=== PATIENT | male | born 1945 | race Caucasian/White ===

== ENCOUNTER → 2018-01-13 | Outpatient (CLI) | payer BC, MEDICARE ==
[~2018-01-13] MED LIST: ASCO500; ASPI81CH; Benazepril HCl40 MG PO; CENTRUM COMPLE1 EACH; CHOL10002; CHRO200; DILT120 PO; DILT120ERA; FISH1000; FISH1000 PO; GARLIC; GLIM2 PO; GLIM4 PO; HALO.05TC; HYDCHL50 PO; MELATONIN10 MG; METF500 PO; POTCIT10; PSYL5.85P PO; Psyllium Fibe0.52 GM; ROSU10TA; RXOXYACE PO; SCOPOLAMINE1 EACH TD; UBID100; VITS; ZOLP10 PO
== END ==
LOC: LAB EV 08:52
DX: E11.9 Type 2 diabetes mellitus without complications (principal)
CPT/HCPCS: 82043

== ENCOUNTER 2018-01-15 13:23 | Day surgery (SDC) | payer BC, MEDICARE ==
[~2018-01-15] VITALS: Ht 180.3 cm; Wt 88.9 kg
== END 2018-01-15 16:00 | disposition home or self-care (01) ==
LOC: ORSCSDS 13:23
PROVIDERS: Internal Medicine Gastroenterology
PROC: 0DBN8ZX Excision of Sigmoid Colon, Via Natural or Artificial Opening Endoscopic, Diagnostic (ICD-10-PCS; principal; 2018-01-15 14:45)
PROC: 0DBM8ZX Excision of Descending Colon, Via Natural or Artificial Opening Endoscopic, Diagnostic (ICD-10-PCS; principal; 2018-01-15 14:45)
PROC: 0DBP8ZX Excision of Rectum, Via Natural or Artificial Opening Endoscopic, Diagnostic (ICD-10-PCS; principal; 2018-01-15 14:45)
PROC: 0DBH8ZX Excision of Cecum, Via Natural or Artificial Opening Endoscopic, Diagnostic (ICD-10-PCS; principal; 2018-01-15 14:45)
DX: Z12.11 Encounter for screening for malignant neoplasm of colon (principal); D12.0 Benign neoplasm of cecum; D12.4 Benign neoplasm of descending colon; D12.5 Benign neoplasm of sigmoid colon; K62.1 Rectal polyp; K57.30 Diverticulosis of large intestine without perforation or abscess without bleeding; Z86.010 Personal history of colon polyps; Z80.0 Family history of malignant neoplasm of digestive organs; E11.9 Type 2 diabetes mellitus without complications; I10 Essential (primary) hypertension; E78.5 Hyperlipidemia, unspecified; N40.0 Benign prostatic hyperplasia without lower urinary tract symptoms; Z79.82 Long term (current) use of aspirin; Z79.84 Long term (current) use of oral hypoglycemic drugs; Z79.899 Other long term (current) drug therapy
CPT/HCPCS: 82947; 88305; J7120

== ENCOUNTER → 2019-01-20 | Outpatient (CLI) | payer BC, MEDICARE | END | disposition home or self-care (01) | LOC: LAB EV 12:48 → LAB SHORT 12:48 | DX: E11.9 Type 2 diabetes mellitus without complications (principal) | CPT/HCPCS: 82043 ==

== ENCOUNTER → 2019-03-22 | Outpatient (CLI) | payer BC, MEDICARE ==
[2019-03-22 16:00] LABS: BASOPHILS ABSOLUTE AUTO 0.01 K/mm3 (0.00-0.23); BASOPHILS PERCENT AUTO 0 % (0-2); EOSINOPHILS ABSOLUTE AUTO 0.03 K/mm3 (0.00-0.68); EOSINOPHILS PERCENT AUTO 1 % (0-6); Hematocrit 45.5 % (37.0-53.0); Hemoglobin 15.5 g/dL (13.5-17.5); IMMATURE GRAN ABSOLUTE AUTO 0.04 K/mm3 (0.00-0.10); IMMATURE GRAN PERCENT AUTO 1 % (0-1); LYMPHOCYTES PERCENT AUTO 18 % (21-46); MONOCYTES ABSOLUTE AUTO 0.95 K/mm3 (0.16-1.47); MONOCYTES PERCENT AUTO 18 % (4-13); Mean Corpuscular HGB 30.9 pg (26.0-34.0); Mean Corpuscular HGB Conc 34.1 g/dL (31.5-36.5); Mean Corpuscular Volume 91 fL (80-100); Mean Platelet Volume 10.5 fL (9.1-12.4); NEUTROPHILS ABSOLUTE AUTO 3.22 K/mm3 (1.96-9.15); NEUTROPHILS PERCENT AUTO 63 % (41-73); Platelet Count 178 K/mm3 (150-400); RDW Coefficient Variation 13.6 % (11.7-14.2); RDW Standard Deviation 45.4 fL (35.1-46.3); Red Blood Cell Count 5.02 M/mm3 (4.30-5.90); White Blood Cell Count 5.15 K/mm3 (4.00-11.30)
[2019-03-22 16:04] LABS: Calcium, Blood 8.4 mg/dL (8.5-10.1); Creatinine, Blood 2.03 mg/dL (0.60-1.20); Potassium, Blood 3.4 mmol/L (3.5-5.5)
== END | disposition home or self-care (01) ==
LOC: LAB EV 15:55 → LAB SHORT 15:55
PROVIDERS: Family Medicine
DX: K52.9 Noninfective gastroenteritis and colitis, unspecified (principal)
CPT/HCPCS: 80048; 85025

== ENCOUNTER 2020-05-02 18:47 | Emergency (ER) | payer MEDICARE ==
[~2020-05-02 18:47] MED LIST changes: -ONDA4ODT MM
[2020-05-02] MEDS ORDERED: ONDA4ODT MM (20:49)
== END 2020-05-02 19:40 | disposition left against medical advice (07) ==
LOC: ER 18:47 → CT 18:47 → ER 19:40 → EDSTATUS 19:50 → ER 20:04
DX: Z53.21 Procedure and treatment not carried out due to patient leaving prior to being seen by health care provider (principal)
CPT/HCPCS: 74176

== ENCOUNTER 2020-05-02 20:01 | Emergency (ER) | payer MEDICARE ==
[~2020-05-02] VITALS: Ht 180.3 cm; Wt 87.1 kg
[2020-05-02] MEDS ORDERED: ONDA4ODT MM (20:49)
== END 2020-05-02 21:15 | disposition home or self-care (01) ==
LOC: ER 20:01
DX: N20.0 Calculus of kidney (principal); Z91.048 Other nonmedicinal substance allergy status; Z88.7 Allergy status to serum and vaccine; Z88.8 Allergy status to other drugs, medicaments and biological substances; Z79.899 Other long term (current) drug therapy; Z79.84 Long term (current) use of oral hypoglycemic drugs; Z79.82 Long term (current) use of aspirin
CPT/HCPCS: 96361; 96374; 96375; 99283-25; A9270; A9270-GY; J1885; J2405; J7030

== ENCOUNTER → 2020-05-02 | Outpatient (CLI) | payer MEDICARE ==
[~2020-05-02] MED LIST changes: +ONDA4ODT MM
== END | disposition home or self-care (01) ==
LOC: LAB EV 18:40 → LAB SHORT 18:40
DX: R31.9 Hematuria, unspecified (principal)
CPT/HCPCS: 87086

== ENCOUNTER → 2021-02-26 | Outpatient (CLI) | payer MEDICARE ==
[~2021-02-26] MED LIST changes: +ONDA4ODT MM
[2021-02-27 10:28] LABS: Stool Occult Bld Immuno 1 Negative (NEGATIVE)
== END | disposition home or self-care (01) ==
LOC: LAB EV 14:35 → LAB SHORT 14:35
PROVIDERS: Family Medicine
DX: D64.9 Anemia, unspecified (principal)
CPT/HCPCS: G0328

== ENCOUNTER → 2021-08-27 | Outpatient (CLI) | payer MEDICARE | END | disposition home or self-care (01) | LOC: LAB 16:06 → LAB SHORT 16:06 | DX: N39.0 Urinary tract infection, site not specified (principal) | CPT/HCPCS: 87077; 87086; 87186 ==

== ENCOUNTER 2022-01-22 08:28 | Day surgery (SDC) | payer MEDICARE ==
[~2022-01-22] VITALS: Ht 180.3 cm; Wt 75.5 kg
--- NOTE | 2022-01-22 11:06 | NUR ---
01/22/22 1106 Emily Carlisle (Melanie DOCUMENTATION COMPLETED BY [facility].[place], MEDICATION ADMINISTERED BY [email or web address].
== END 2022-01-22 11:27 | disposition home or self-care (01) ==
LOC: ORSCSDS 08:28
PROVIDERS: Internal Medicine Gastroenterology
PROC: 0DBH8ZX Excision of Cecum, Via Natural or Artificial Opening Endoscopic, Diagnostic (ICD-10-PCS; principal; 2022-01-22 09:45)
PROC: 0DBM8ZX Excision of Descending Colon, Via Natural or Artificial Opening Endoscopic, Diagnostic (ICD-10-PCS; principal; 2022-01-22 09:45)
DX: Z12.11 Encounter for screening for malignant neoplasm of colon (principal); Z86.010 Personal history of colon polyps; D12.0 Benign neoplasm of cecum; D12.4 Benign neoplasm of descending colon; Z80.0 Family history of malignant neoplasm of digestive organs; K57.30 Diverticulosis of large intestine without perforation or abscess without bleeding; K21.9 Gastro-esophageal reflux disease without esophagitis; Z79.899 Other long term (current) drug therapy
CPT/HCPCS: 82947; 88305; J2704; J7120

== ENCOUNTER 2022-08-11 13:53 | Day surgery (SDC) | payer MEDICARE ==
[~2022-08-11] VITALS: Ht 180.3 cm; Wt 78.5 kg
[2022-08-11] MEDS ORDERED: GLUCHON (14:16)
[2022-08-11] MEDS ORDERED: ERGO400 (14:16)
[2022-08-11] MEDS ORDERED: OMEP20ER (14:16)
== END 2022-08-11 15:35 | disposition home or self-care (01) ==
LOC: ORSCSDS 13:53
PROVIDERS: Internal Medicine Gastroenterology
PROC: 0DJ08ZZ Inspection of Upper Intestinal Tract, Via Natural or Artificial Opening Endoscopic (ICD-10-PCS; principal; 2022-08-11 15:30)
DX: R13.14 Dysphagia, pharyngoesophageal phase (principal); E11.9 Type 2 diabetes mellitus without complications; Z87.11 Personal history of peptic ulcer disease; Z79.899 Other long term (current) drug therapy
CPT/HCPCS: 82947; J0330; J0461; J2405; J2704; J7120

== ENCOUNTER 2025-02-12 14:43 | Emergency (ER) | payer MEDICARE ==
[~2025-02-12] VITALS: Ht 182.9 cm; Wt 74.8 kg
[~2025-02-12 14:43] MED LIST changes: +ERGO400; +GLUCHON; +OMEP20ER
[2025-02-12] MEDS ORDERED: NS 1,000 ML IV SCH ×2 (15:20→18:00)
[2025-02-12] MEDS ORDERED: Ketorolac Tromethamine 15mg Vial IV ONE ×2 (15:20→18:00)
[2025-02-12 15:44] LABS: BASOPHILS ABSOLUTE AUTO 0.03 K/mm3 (0.00-0.23); BASOPHILS PERCENT AUTO 0 % (0-2); EOSINOPHILS ABSOLUTE AUTO 0.03 K/mm3 (0.00-0.68); EOSINOPHILS PERCENT AUTO 0 % (0-6); Hematocrit 43.5 % (37.0-53.0); Hemoglobin 14.4 g/dL (13.5-17.5); IMMATURE GRAN ABSOLUTE AUTO 0.06 K/mm3 (0.00-0.10); IMMATURE GRAN PERCENT AUTO 1 % (0-1); LYMPHOCYTES ABSOLUTE AUTO 0.33 K/mm3 (0.84-5.20); LYMPHOCYTES PERCENT AUTO 3 % (21-46); MONOCYTES ABSOLUTE AUTO 0.19 K/mm3 (0.16-1.47); MONOCYTES PERCENT AUTO 2 % (4-13); Mean Corpuscular HGB 30.9 pg (26.0-34.0); Mean Corpuscular HGB Conc 33.1 g/dL (31.5-36.5); Mean Corpuscular Volume 93 fL (80-100); NEUTROPHILS PERCENT AUTO 95 % (41-73); Platelet Count 204 K/mm3 (150-400); RDW Coefficient Variation 13.6 % (11.7-14.2); RDW Standard Deviation 46.5 fL (35.1-46.3); Red Blood Cell Count 4.66 M/mm3 (4.30-5.90); White Blood Cell Count 12.24 K/mm3 (4.00-11.30)
[2025-02-12 16:16] LABS: Albumin, Blood 3.4 g/dL (3.4-5.0); Albumin/Globulin Ratio 0.9 (0.8-1.8); Bilirubin, Total 0.9 mg/dL (0.1-1.0); Bun/Creatinine Ratio 24.4 (12.0-20.0); Calcium, Blood 10.3 mg/dL (8.5-10.1); Creatinine, Blood 1.35 mg/dL (0.60-1.20); Globulin, Blood 3.7 g/dL (2.2-4.0); Potassium, Blood 3.9 mmol/L (3.5-5.5); Total Protein, Blood 7.1 g/dL (6.4-8.2)
[2025-02-12 16:43] LABS: Source, Urine Clean Catch
[2025-02-12 16:48] LABS: Appearance, Urine Cloudy (Clear); Bilirubin, Urine Neg (Neg); Blood, Urine 4+ (Neg); Color, Urine Yellow (P-Yellow); Glucose Qualitative, Urine Neg (Neg); Ketones, Urine Neg (Neg); Leukocyte Esterase, Urine 3+ (Neg); Nitrite, Urine Pos (Neg); Protein, Urine 4+ (Neg); Specific Gravity, Urine 1.025 (1.003-1.022); Urobilinogen, Urine NORM (Normal)
[2025-02-12 16:58] LABS: Bacteria Many /hpf; Calcium Oxalate Crystals Few /hpf; White Blood Cells, Urine TNTC /hpf (0-5)
[2025-02-12 16:59] LABS: Squamous Epithelial Cells Few /hpf (Few)
[2025-02-12] MEDS ORDERED: CefTRIAXone Sodium 1,000 MG in NS 100 ML IV ONE (18:50)
[2025-02-12 21:30] VITALS: BP 115/68
== END 2025-02-12 21:55 | disposition other institution (70) ==
LOC: ER 14:43
PROVIDERS: Student in an Organized Health Care Education/Training Program
DX: N13.6 Pyonephrosis (principal); Z88.5 Allergy status to narcotic agent; Z88.7 Allergy status to serum and vaccine; Z91.014 Allergy to mammalian meats; Z79.84 Long term (current) use of oral hypoglycemic drugs; Z79.899 Other long term (current) drug therapy
CPT/HCPCS: 74176; 80053; 81001; 83690; 85025; 87077; 87086; 87186; 96361; 96365; 96375; 99285-25; J0696; J1885; J7030

== ENCOUNTER → 2025-03-02 | Outpatient (CLI) | payer MEDICARE ==
[2025-03-02 12:43] LABS: Source, Urine Voided
[2025-03-02 14:16] LABS: Appearance, Urine Cloudy (Clear); Bilirubin, Urine Neg (Neg); Blood, Urine 5+ (Neg); Color, Urine Brown (P-Yellow); Glucose Qualitative, Urine Neg (Neg); Ketones, Urine 1+ (Neg); Leukocyte Esterase, Urine 2+ (Neg); Nitrite, Urine Neg (Neg); Protein, Urine 3+ (Neg); Urobilinogen, Urine NORM (Normal)
[2025-03-02 14:51] LABS: Calcium Oxalate Crystals Few /hpf
[2025-03-02 14:52] LABS: Red Blood Cells, Urine TNTC /hpf (0-2)
[2025-03-02 14:53] LABS: Bacteria Many /hpf; Squamous Epithelial Cells Not Seen /hpf (Few)
== END ==
LOC: LAB SHORT 12:41 → LAB 12:41
PROVIDERS: Urology
DX: N20.1 Calculus of ureter (principal)
CPT/HCPCS: 81001; 87086

== ENCOUNTER 2025-06-15 13:05 | Day surgery (SDC) | payer MEDICARE ==
[~2025-06-15] VITALS: Ht 180.3 cm; Wt 76.0 kg
[~2025-06-15 13:05] MED LIST changes: +Glycopyrrolate 0.2 MG/ML 1MLVIAL ONE; +Ondansetron HCl 2 MG / ML 2ML Vial ONE; +ePHEDrine Sulfate 50 MG/ML 1ML Injection ONE
[2025-06-15] MEDS ORDERED: DILT-XR120 M2 (13:36)
[2025-06-15] MEDS ORDERED: DONEPEZIL HCL10 M1 (13:36)
[2025-06-15] MEDS ORDERED: MAGNESIUM250 M1 (13:39)
[2025-06-15] MEDS ORDERED: CINNAMON EXTRA500 MG (13:41)
[2025-06-15] MEDS ORDERED: Chromium Pico400 MCG (13:41)
[2025-06-15 15:19] VITALS: BP 142/93
== END 2025-06-15 15:09 | disposition home or self-care (01) ==
LOC: ORSCSDS 13:05
PROVIDERS: Specialist
PROC: 0DB68ZX Excision of Stomach, Via Natural or Artificial Opening Endoscopic, Diagnostic (ICD-10-PCS; principal; 2025-06-15 14:30)
PROC: 0D758ZZ Dilation of Esophagus, Via Natural or Artificial Opening Endoscopic (ICD-10-PCS; principal; 2025-06-15 14:30)
PROC: 0DB58ZX Excision of Esophagus, Via Natural or Artificial Opening Endoscopic, Diagnostic (ICD-10-PCS; principal; 2025-06-15 14:30)
DX: R13.10 Dysphagia, unspecified (principal); K21.9 Gastro-esophageal reflux disease without esophagitis; K22.2 Esophageal obstruction; K44.9 Diaphragmatic hernia without obstruction or gangrene; E11.9 Type 2 diabetes mellitus without complications; E78.5 Hyperlipidemia, unspecified; Z79.899 Other long term (current) drug therapy
CPT/HCPCS: 82947; 88305; 88312; 88342; C1769; J0461; J2003; J2405; J2704; J7120; Q9968

== ENCOUNTER 2025-07-16 22:10 | Emergency (ER) | payer MEDICARE ==
[~2025-07-16] VITALS: Ht 180.3 cm; Wt 71.2 kg
[~2025-07-16 22:10] MED LIST changes: +CINNAMON EXTRA500 MG; +Chromium Pico400 MCG; +DILT-XR120 M2; +DONEPEZIL HCL10 M1; -Glycopyrrolate 0.2 MG/ML 1MLVIAL ONE; +MAGNESIUM250 M1; -Ondansetron HCl 2 MG / ML 2ML Vial ONE; -ePHEDrine Sulfate 50 MG/ML 1ML Injection ONE
[2025-07-16] MEDS ORDERED: NS 1,000 ML IV SCH (22:35)
[2025-07-16] MEDS ORDERED: Ketorolac Tromethamine 15mg Vial IV ONE (22:35)
[2025-07-16 22:48] LABS: BASOPHILS ABSOLUTE AUTO 0.02 K/mm3 (0.00-0.23); BASOPHILS PERCENT AUTO 0 % (0-2); EOSINOPHILS ABSOLUTE AUTO 0.00 K/mm3 (0.00-0.68); EOSINOPHILS PERCENT AUTO 0 % (0-6); Hematocrit 38.0 % (37.0-53.0); Hemoglobin 12.5 g/dL (13.5-17.5); IMMATURE GRAN ABSOLUTE AUTO 0.07 K/mm3 (0.00-0.10); IMMATURE GRAN PERCENT AUTO 0 % (0-1); LYMPHOCYTES ABSOLUTE AUTO 0.19 K/mm3 (0.84-5.20); LYMPHOCYTES PERCENT AUTO 1 % (21-46); MONOCYTES ABSOLUTE AUTO 0.87 K/mm3 (0.16-1.47); MONOCYTES PERCENT AUTO 5 % (4-13); Mean Corpuscular HGB Conc 32.9 g/dL (31.5-36.5); Mean Corpuscular Volume 91 fL (80-100); NEUTROPHILS ABSOLUTE AUTO 16.30 K/mm3 (1.96-9.15); NEUTROPHILS PERCENT AUTO 93 % (41-73); NRBC ABSOLUTE 0.00 K/mm3 (0.00-0.02); NRBC Auto 0.0 /100 WBC (0.0-0.2); Platelet Count 150 K/mm3 (150-400); RDW Coefficient Variation 13.6 % (11.7-14.2); RDW Standard Deviation 45.1 fL (35.1-46.3)
[2025-07-16 22:59] LABS: Alanine Aminotransfer (ALT/SGP 28.0 U/L (12-78); Albumin, Blood 2.8 g/dL (3.4-5.0); Albumin/Globulin Ratio 0.8 (0.8-1.8); Anion Gap 6.0 mmol/L (3-11); Aspartate Aminotrans (AST/SGOT 21.0 U/L (12-37); Bilirubin, Total 0.6 mg/dL (0.1-1.0); Blood Urea Nitrogen 26.0 mg/dL (8-24); CO2, Blood 27.0 mmol/L (21-32); Calcium, Blood 9.6 mg/dL (8.5-10.1); Chloride, Blood 110.0 mmol/L (98-108); Creatinine, Blood 1.29 mg/dL (0.60-1.20); Globulin, Blood 3.7 g/dL (2.2-4.0); Glucose, Blood 133.0 mg/dL (70-99); Magnesium, Blood 1.5 mg/dL (1.6-2.4); Potassium, Blood 3.9 mmol/L (3.5-5.5); Sodium, Blood 139.0 mmol/L (136-145); Total Protein, Blood 6.5 g/dL (6.4-8.2)
[2025-07-16 23:14] LABS: Source, Urine Clean Catch
[2025-07-16 23:25] LABS: Bilirubin, Urine Neg (Neg); Glucose Qualitative, Urine Neg (Neg); Ketones, Urine Neg (Neg); Leukocyte Esterase, Urine 3+ (Neg); Protein, Urine 3+ (Neg); Specific Gravity, Urine 1.020 (1.003-1.022); Urobilinogen, Urine NORM (Normal)
[2025-07-16 23:34] LABS: Color, Urine Yellow (P-Yellow)
[2025-07-16 23:35] LABS: White Blood Cells, Urine TNTC /hpf (0-5)
[2025-07-17] MEDS ORDERED: CefTRIAXone Sodium 1,000 MG in NS 100 ML IV ONE (00:10)
[2025-07-17 00:15] VITALS: BP 122/64
[2025-07-17] MEDS ORDERED: FISH OIL 1,0001 EA10 PO (00:16)
== END 2025-07-17 01:44 | disposition short-term general hospital (02) ==
LOC: ER 22:10
PROVIDERS: Emergency Medicine
DX: N13.2 Hydronephrosis with renal and ureteral calculous obstruction (principal); G30.9 Alzheimer's disease, unspecified; F02.80 Dementia in other diseases classified elsewhere, unspecified severity, without behavioral disturbance, psychotic disturbance, mood disturbance, and anxiety; Z87.442 Personal history of urinary calculi; Z85.46 Personal history of malignant neoplasm of prostate; Z90.79 Acquired absence of other genital organ(s); Z91.030 Bee allergy status; Z91.048 Other nonmedicinal substance allergy status; Z88.7 Allergy status to serum and vaccine; Z88.5 Allergy status to narcotic agent; Z79.84 Long term (current) use of oral hypoglycemic drugs; Z79.899 Other long term (current) drug therapy
CPT/HCPCS: 36415; 74177; 80053; 81001; 83605; 83690; 83735; 85025; 87040; 87077; 87186; 96361; 96365; 96375; 99285-25; A9270; J0696; J1885; J7030; Q9967

== ENCOUNTER → 2025-08-29 | Outpatient (CLI) | payer MEDICARE ==
[~2025-08-29] MED LIST changes: +FISH OIL 1,0001 EA10 PO
[2025-09-04 13:45] LABS: CALCIUM, URINE - PER 24H 352 mg/d (100-250); CALCIUM, URINE - PER VOLUME 27.1 mg/dL; CHLORIDE, URINE - PER 24H 126 mmol/d (140-250); CHLORIDE, URINE - PER VOLUME 97 mmol/L; CITRIC ACID, URINE - PER 24H 364 mg/d (320-1240); CITRIC ACID,URINE - PER VOLUME 280 mg/L; CREATININE, URINE - PER 24H 1326 mg/d (600-2000); CREATININE, URINE - PER VOLUME 102 mg/dL; HOURS COLLECTED 24 hr; MAGNESIUM, URINE - PER VOLUME 14.7 mg/dL; MAGNESIUM, URINE PER 24H 191 mg/d (12-199); OXALATE, URINE - PER 24H 43 mg/d (16-49); OXALATE, URINE - PER VOLUME 33 mg/L; PHOSPHORUS, URINE - PER 24H 624 mg/d (400-1300); PHOSPHORUS, URINE - PER VOLUME 48 mg/dL; POTASSIUM, URINE - PER 24H 38 mmol/d (25-125); POTASSIUM, URINE - PER VOLUME 29 mmol/L; SODIUM, URINE - PER 24H 131 mmol/d (51-286); SODIUM, URINE - PER VOLUME 101 mmol/L; SULFATE, URINE - PER 24H 13 mmol/d (6-30); SULFATE, URINE - PER VOLUME 10 mmol/L; URIC ACID, URINE - PER 24H 382 mg/d (250-750); URIC ACID, URINE - PER VOLUME 29.4 mg/dL; URINE SUPERSATURATION INTERP Abnormal; URINE SUPERSATURATION, CAHPO4 2.89; URINE SUPERSATURATION, CAOX 16.24; URINE SUPERSATURATION, UA CALC 0.59
== END ==
LOC: LAB 22:30 → LAB SHORT 22:30 → RAD SHORT 22:30
PROVIDERS: Hospitalist
DX: N20.0 Calculus of kidney (principal); R80.9 Proteinuria, unspecified
CPT/HCPCS: 81003; 82131; 82140; 82340; 82436; 82507; 82570; 83735; 83935; 83945; 84105; 84133; 84300; 84392; 84560

== ENCOUNTER → 2025-11-13 | Outpatient (CLI) | payer MEDICARE | LOC: LAB 08:30 → LAB SHORT 08:30 | DX: R82.90 Unspecified abnormal findings in urine (principal) | CPT/HCPCS: 87086 ==